=== PATIENT | female | born 1985 | race Hispanic/Latino ===

== ENCOUNTER 2018-06-17 23:32 | Emergency (ER) | payer MEDICAID ==
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
[2018-06-18 01:44] VITALS: BP 148/98
[2018-06-18] MEDS ORDERED: IBUPROFEN PO ONE (02:23)
[2018-06-18] MEDS ORDERED: ROBAXIN PO ONE (02:23)
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
== END 2018-06-18 03:05 | disposition home or self-care (01) ==
LOC: ED 23:32
DX: S06.0X1A Concussion with loss of consciousness of 30 minutes or less, initial encounter (principal); S16.1XXA Strain of muscle, fascia and tendon at neck level, initial encounter; I10 Essential (primary) hypertension; J45.909 Unspecified asthma, uncomplicated; E78.00 Pure hypercholesterolemia, unspecified; F17.200 Nicotine dependence, unspecified, uncomplicated; Z88.6 Allergy status to analgesic agent; Z88.4 Allergy status to anesthetic agent; Z88.2 Allergy status to sulfonamides; Y04.2XXA Assault by strike against or bumped into by another person, initial encounter; Y93.89 Activity, other specified; Y92.89 Other specified places as the place of occurrence of the external cause; Y99.8 Other external cause status
CPT/HCPCS: 70450; 72125; 99283